=== PATIENT | male | born 1955 | race African-American/Black ===

== ENCOUNTER 2021-02-14 16:02 | Inpatient (IN) | payer OTHER, MEDICARE ==
[~2021-02-14] VITALS: Ht 180.3 cm; Wt 65.4 kg
[2021-02-14 16:09] VITALS: BP 155/103
[2021-02-14 16:36] LABS: ABSOLUTE NEUTROPHILS 2.7 thou/uL (1.4-8.2); BASOPHILS 0.5 % (0.0-2.0); HEMATOCRIT 46.5 % (42.0-52.0); HEMOGLOBIN 15.6 gm/dL (14.0-18.0); LYMPHOCYTES 35.6 % (24.0-44.0); MCH 34.5 pg (26.0-34.0); MCHC 33.7 g/dL (28.0-37.0); MCV 102.5 fL (80.0-100.0); MONOCYTES 9.3 % (1.0-8.0); PLATELET COUNT 309 thou/uL (150-400); POLYS 52.6 % (36.0-66.0); RBC 4.53 mil/uL (4.50-6.00); RDW 13.8 % (10.5-14.5); WBC 5.1 thou/uL (4.0-11.0)
[2021-02-14 16:44] LABS: CALCIUM 9.5 mg/dL (8.5-10.1); CREATININE 1.2 mg/dL (0.7-1.3); POTASSIUM 4.3 mmol/L (3.5-5.1)
[2021-02-14 16:46] LABS: APTT 26.5 Seconds (24.5-32.8); INR 0.97; PROTIME 10.6 Seconds (10.5-12.1)
[2021-02-14 16:54] LABS: ALBUMIN 3.9 g/dL (3.4-5.0); TOTAL PROTEIN 8.8 g/dL (6.4-8.2)
[2021-02-14 19:56] VITALS: BP 141/75
[2021-02-14 21:10] VITALS: BP 130/66
[2021-02-14 21:13] VITALS: BP 125/77
--- NOTE | 2021-02-15 00:05 | NUR ---
PT ARRIVED TO 3W FROM ED VIA WHEELCHAIR AT APPROXIMATELY 2100, ACCOMPANIED BY ED STAFF. PT IS A&OX4, PLEASANT AND COOPERATIVE, ABLE TO MAKE WANTS AND NEEDS KNOWN TO STAFF. PT ON ROOM AIR, INVENTORY COORDINATOR APPLIED, SR NOTED. UP TO BR WITH SBA/SUPERVISION. PT WITH STEADY GAIT AND INDEPENDENT TRANSFER. PT ORIENTED TO ROOM AND USE OF CALL LIGHT. ADMISSION ASSESSMENTS COMPLETED PER PROTOCOL. PT IS NPO AFTER MIDNIGHT IN PREPARATION FOR THORACENTESIS IN THE MORNING. RESTING COMFORTABLY AT THIS TIME WITH EYES CLOSED, RESPIRATIONS EVEN AND UNLABORED. WILL CONTINUE TO OBSERVE FOR CHANGES
[2021-02-15 01:30] VITALS: BP 120/81
[2021-02-15 04:46] VITALS: BP 123/60
[2021-02-15 06:00] LABS: MCV 103.2 fL (80.0-100.0)
[2021-02-15 06:03] LABS: HEMOGLOBIN 13.7 gm/dL (14.0-18.0); MCH 33.7 pg (26.0-34.0); MCHC 32.7 g/dL (28.0-37.0); RBC 4.07 mil/uL (4.50-6.00); RDW 13.8 % (10.5-14.5); WBC 4.4 thou/uL (4.0-11.0)
[2021-02-15 06:40] LABS: CALCIUM 8.7 mg/dL (8.5-10.1)
[2021-02-15 07:27] VITALS: BP 125/68
--- NOTE | 2021-02-15 10:16 | EKG ---
[place] [address] [facility] [place] [address] ELECTROCARDIOGRAM REPORT Name: ANA ROSA AKBAR Room #: 359-P ADM IN M.R.#: [id number] Admission: 02/14/21 Attend Phys: Gerardo Fournier MD Discharge: Date of : 55 Report #: [id number] [facility] ED Test Date: 2021-02-14 Test Time: 16:08:27 Pat Name: ANA ROSA AKBAR Department: Room: [facility] Gender: M Supervisor Correspondence Section: BRUNO : 1955 Requested By: Darinel Gillis Order Number: [id number] MD: Andrew Gonzalez Measurements Intervals Wirt Rate: 82 P: -23 MN: 82 QRS: 54 QRSD: 91 T: -23 QT: 380 QTc: 444 Interpretive Statements Sinus rhythm Short MN interval Repol abnrm suggests ischemia, inferior leads No previous ECG available for comparison Electronically Signed On 02-15-2021 10:16:28 CENTRAL CONTROL ROOM OPERATOR by Andrew Gonzalez [email or web address] <ELECTRONICALLY SIGNED> By: Andrew Gonzalez MD 02/15/21 1016 [id number] [id number] Andrew Gonzalez MD /EPI
[2021-02-15 11:14] VITALS: BP 125/80
--- NOTE | 2021-02-15 11:15 | NUR ---
1110 PT COMPLAINS OF INTERMITTENT CHEST PAIN, DR. NIELSEN MADE AWARE, WHEN HE WAS ROUNDSING. 07/01, NAGGING PAIN. NO SHOULD PAIN OR OTHER SYMPTOMS. VITALS SIGNS WITH NORMAL LEVELS. WILL CONTINUE TO MONITOR. CALLED ULTRASUND MULTIPLE TIMES FOR PT THORACENESIS, NO ANSWER. DR. NIELSEN MADE AWARE. TRIED CALLING HOUSE SUP NO ANSWER
[2021-02-15] MEDS ORDERED: NORCO 10-325 T1 EACH PO (12:17)
[2021-02-15] MEDS ORDERED: BACLOFEN 10MG T10 MG PO (12:18)
[2021-02-15] MEDS ORDERED: PEPCID20 MG PO (15:00)
[2021-02-15] MEDS ORDERED: BAYER CHEWABLE81 MG PO (15:00)
[2021-02-15] MEDS ORDERED: FLOMAX0.4 MG PO (15:00)
[2021-02-15] MEDS ORDERED: REMERON 30 MG T30 M1 PO (15:00)
[2021-02-15] MEDS ORDERED: MIRALAX119 GM PO (15:01)
[2021-02-15 15:35] VITALS: BP 143/81
[2021-02-15 15:47] VITALS: BP 143/81
--- NOTE | 2021-02-15 16:15 | NUR ---
PT ALERT AND ORIENTED X4, ON ROOM AIR NO SIGNS OF DISTRESS. OTDER FOR DISCHARGE IN. JOSHUA TAKEN OUT NO COMPLICATIONS. PT HAD URINE OUTPUT AFTER JOSHUA WAS TAKEN OUT. IV AND TEL DC. PT MADE AWARE OF APPT AND NEW MED INFO. DENIES ANY QUESTIONS. ALL BELONGINGS WITH PT. PT TAKEN DOWN VIA WHEELCHAIR.
--- NOTE | 2021-02-22 07:31 | HC ---
[facility] [place] [address] CONSULTATION Name: ANA ROSA AKBAR Room #: 359-P [facility] IN M.R.#: [id number] Admission: 02/14/21 Attend Phys: Gerardo Fournier MD Discharge: 02/15/21 Date of : 55 Report #: [id number] THIS REPORT FOR: cc: FAM - Family physician unknown FAM - Family physician unknown Ana Rosa Mckinley MD ~ cc: Gerardo Fournier MD, Will Bailey MD DATE OF SERVICE: 02/15/2021 REQUESTING PHYSICIAN: Gerardo Fournier M.D. REASON FOR CONSULTATION: History of right-sided lung cancer, history of gastric cancer, symptomatic chest pain with finding of left-sided pleural effusion, which after review of records, is not new, but the quantity of change is unknown. HISTORY OF PRESENT ILLNESS: The patient is a very pleasant 65-year-old male, who I have known for several years. He was last seen by myself last May, last seen by my nurse practitioner in September of this year. He has a known left-sided pleural effusion that has been stable. He also has a known history of right-sided lung cancer. The patient reports several days or maybe a week or two of increasing chest discomfort that he describes as substernal chest pain. He thought he was having a heart attack per se. He denies any fevers or chills, new cough, new swallowing troubles. His weight has been stable. He has not had a change in bowel function. He does feel like his urinary function has been a little bit more delayed and slower than usual. No one else in his family has been sick lately. It sounded like his children had COVID, but they have recovered, and he is fully vaccinated, having had 3 doses of the vaccine. Weight is stable. Note that since the patient was seen here, he had a CAT scan of the chest that showed a large left-sided pleural effusion with a 3.2 x 3.4 cm spiculated mass in the central right lung. LABORATORY DATA: Notable, hemoglobin 15.6, white count 5.1, platelets 309. Coags were normal. Creatinine 1.2. Liver functions normal. Albumin 3.9. PAST MEDICAL HISTORY: Notable for the gastric cancer from about 2011. 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 He had [facility] Tonya [facility] Donnelly for [facility]. Looks like he did weekly carboplatin and Taxol and then the radiation therapy. He has been ROSE from that. He also has a history of right-sided lung cancer, seen radiographically and treated with SBRT radiation therapy by Dr. Will Bailey with last dose given on 09/14/2018. The patient also has a history of a blood clot occurring after surgery, was on anticoagulation, no recurrent. Also, [address] [address] CONSULTATION Name: RAFFYANA ROSA Room #: 359-P DIS IN M.R.#: [id number] Admission: 02/14/21 Attend Phys: Gerardo Fournier MD Discharge: 02/15/21 Date of : 55 Report #: [id number] history of atrial fibrillation in the past, not currently present; hypertension; BPH; and also vitamin B12 deficiency, on monthly injections. SOCIAL HISTORY: He is retired. He and his still live over near [address] [place] [address], near the [place]. He is retired, used to work at the [employer] in [place]. He enjoys fishing. He is a former smoker, he quit in 2011. Prior to that was about one and a half packs a day for 40 years. He does not smoke, alcohol. In the past, he had used marijuana several times per week, not sure if that is persistent. FAMILY HISTORY: Heart disease in his mother. Mother also had hypercholesterolemia and a stroke and diabetes. Sister had breast cancer. MEDICATIONS: At this time in the hospital currently include mirtazapine 30 mg at bedtime, tamsulosin 0.4 at bedtime, aspirin 81 daily, famotidine 20 b.i.d., hydrocodone p.r.n., Tylenol p.r.n., ceftriaxone one dose, azithromycin one dose. PHYSICAL EXAMINATION: GENERAL: The patient appears his stated age. VITAL SIGNS: Height is 5 feet 11 inches or 180.3 cm, weight 144.2 pounds or 65.4 kilograms. Blood pressure is 125/68, respirations 18, O2 sat 100%, pulse 69, temperature 97.4. HEENT: Face is symmetric. NEUROLOGIC: Speech and thought pattern normal. Moving extremities appropriately. LUNGS: Slightly dull at the left base, but I do not know if it is much different than I recall from the past. ABDOMEN: Scaphoid, does have evidence of scars from past gastric surgery and feeding tube. No obvious masses. EXTREMITIES: Without clubbing, cyanosis, or edema. ASSESSMENT AND PLAN: 1. Newly symptomatic, but previously seen, left-sided pleural effusion; unclear if this is causing pain. Agree with tentative plans for thoracentesis. We will also need to arrange for outside comparison ____ or CAT scan to see if this is significantly different. Note that at [facility], it appeared to be loculated. We will await cytology and other evaluation. 2. Dysuria and other bladder symptoms. Postvoid residual bladder check pending. Continues on Flomax, may need a higher dose. 3. History of right-sided lung cancer from 2019, not known to be recurrent. We will need CAT scan comparison to assess changes in the right lung. 4. History of gastric cancer from 2011, not known to be recurrent. 5. Hypertension. Meds per others. 6. History of atrial fibrillation, not seen currently on EKG. 7. Vitamin B12 deficiency. Will need to continue replacement. [facility] [address] [place] [address] CONSULTATION Name: ANA ROSA AKBAR Room #: 359-P DIS IN M.R.#: [id number] Admission: 02/14/21 Attend Phys: Gerardo Fournier MD Discharge: 02/15/21 Date of : 55 Report #: [id number] We will follow with you. <ELECTRONICALLY SIGNED> By: Ana Rosa Mckinley MD 02/22/21 0731 [id number] Ana Rosa Mckinley MD /nt
== END 2021-02-15 16:57 | disposition home or self-care (01) | DRG 180 ==
LOC: ER 16:02 → EROBS 19:33 → 3W 20:59
PROVIDERS: Emergency Medicine; Nurse Practitioner Family; ADMIT Internal Medicine; ATTEND Internal Medicine
DX: C34.91 Malignant neoplasm of unspecified part of right bronchus or lung (principal); J18.9 Pneumonia, unspecified organism; R65.11 Systemic inflammatory response syndrome (SIRS) of non-infectious origin with acute organ dysfunction; J91.0 Malignant pleural effusion; I48.0 Paroxysmal atrial fibrillation; Z20.822 Contact with and (suspected) exposure to COVID-19; I10 Essential (primary) hypertension; N40.0 Benign prostatic hyperplasia without lower urinary tract symptoms; E53.8 Deficiency of other specified B group vitamins; I27.20 Pulmonary hypertension, unspecified; Z90.3 Acquired absence of stomach [part of]; Z79.01 Long term (current) use of anticoagulants; Z88.6 Allergy status to analgesic agent; Z85.028 Personal history of other malignant neoplasm of stomach; Z82.49 Family history of ischemic heart disease and other diseases of the circulatory system; Z82.3 Family history of stroke; Z83.3 Family history of diabetes mellitus; Z80.3 Family history of malignant neoplasm of breast
CPT/HCPCS: 10879